=== PATIENT | female | born 1965 | race Caucasian/White ===

== ENCOUNTER 2018-04-03 00:47 | Emergency (ER) | payer OTHER ==
--- NOTE | 2018-04-03 03:22 | XRay Report ---
FINAL REPORT EXAM: XR CHEST ROUTINE 2V HISTORY: chestpain COMPARISON: None available. FINDINGS:: Frontal and lateral views of the chest obtained. Cardiac silhouette is within normal limits. No focal consolidation or effusion. No pneumothorax. Visualized bony thorax is grossly intact. IMPRESSION:: No acute findings.
--- NOTE | 2018-04-03 03:23 | XRay Report ---
FINAL REPORT EXAM: XR ANKLE 2V RT HISTORY: right ankle pain COMPARISON: None available. FINDINGS: Two views the right ankle obtained. Small plantar calcaneal spur. Soft tissue swelling. Ankle mortise is preserved. No acute fracture dislocation. IMPRESSION: No acute bony abnormality.
--- NOTE | 2018-04-03 03:23 | XRay Report ---
FINAL REPORT EXAM: XR SPINE CERVICAL 2-3V HISTORY: neck pain COMPARISON: None available. FINDINGS: Three views of cervical spine obtained. There is straightening of the normal lordotic curvature which may relate to patient positioning or muscle spasm. Cervical vertebral body heights are preserved. Mild anterior endplate osteophyte mid to lower cervical spine and mild loss of disc height C5-C6 level. Odontoid process grossly intact. IMPRESSION: Mild degenerative changes. There is straightening of the normal lordotic curvature which may relate to patient positioning or muscle spasm.
--- NOTE | 2018-04-03 03:24 | XRay Report ---
FINAL REPORT EXAM: XR HIPS BILAT 2V W/PELVIS HISTORY: Bilateral hip pain COMPARISON: None available. FINDINGS: AP view of the pelvis and frogleg views of bilateral hips obtained. Bilateral hip and SI joint spaces are preserved. Pelvic ring is intact. No acute fracture dislocation. IMPRESSION: No acute bony abnormality.
[2018-04-03] MEDS ORDERED: PERCOCET 5/325 PO ONE (04:04)
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
[2018-04-03 04:55] LABS: Creatine Kinase MB 6.5 ng/mL (0.0-4.0)
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
[2018-04-03 07:36] LABS: Basophils # (Auto) 0.1 K/mm3 (0.0-0.1); Basophils % (Auto) 1.1 % (0.0-1.8); Eosinophils # (Auto) 0.2 K/mm3 (0.0-0.4); Eosinophils % (Auto) 1.9 % (0.0-4.3); Hemoglobin 13.4 gm/dl (10.1-14.3); Lymphocytes # (Auto) 2.3 K/mm3 (1.2-5.4); Lymphocytes % (Auto) 21.5 % (13.4-35.0); Mean Corpuscular HGB Conc 34 % (30-34); Mean Corpuscular Hemoglobin 29 pg (28-32); Mean Corpuscular Volume 83 fl (79-97); Monocytes # (Auto) 0.6 K/mm3 (0.0-0.8); Monocytes % (Auto) 5.7 % (0.0-7.3); Platelet Count 275 K/mm3 (140-440); Red Blood Count 4.68 M/mm3 (3.65-5.03)
[2018-04-03 07:55] LABS: Alanine Aminotransferase 26 units/L (7-56); Albumin 3.7 g/dL (3.9-5); BUN/Creatinine Ratio 35; Blood Urea Nitrogen 21 mg/dL (7-17); Calcium 8.7 mg/dL (8.4-10.2); Hemolysis Index 6
[2018-04-03 09:32] VITALS: BP 156/89
[2018-04-03] MEDS ORDERED: K-DUR PO ONE (10:00)
== END 2018-04-03 10:28 | disposition home or self-care (01) ==
LOC: ED 00:47
DX: S20.219A Contusion of unspecified front wall of thorax, initial encounter (principal); S13.4XXA Sprain of ligaments of cervical spine, initial encounter; S96.912A Strain of unspecified muscle and tendon at ankle and foot level, left foot, initial encounter; I10 Essential (primary) hypertension; R10.9 Unspecified abdominal pain; Z90.49 Acquired absence of other specified parts of digestive tract; Z90.710 Acquired absence of both cervix and uterus; V89.2XXA Person injured in unspecified motor-vehicle accident, traffic, initial encounter; Y93.89 Activity, other specified; Y99.8 Other external cause status; Y92.410 Unspecified street and highway as the place of occurrence of the external cause
CPT/HCPCS: 36415; 71046; 71275; 72040; 73521; 73600; 74176; 80053; 82550; 82553; 82565; 84484; 85025; 93005; 93010; 99284; Q9967